=== PATIENT | female | born 1980 | race Caucasian/White ===

== ENCOUNTER 2018-06-02 01:05 | Emergency (ER) | payer OTHER ==
[~2018-06-02] VITALS: Ht 172.7 cm; Wt 72.6 kg
[2018-06-02 01:05] VITALS: BP 106/86
--- NOTE | 2018-06-02 01:05 | NUR ---
38/F BIBA FOR ETOH FROM BAR. N/V ON ARRIVAL, AIRWAY INTACT. GCS 9, NONVERBAL WITH PURPOSEFUL MOVEMENTS AND EYE OPENING TO VOICE. UNKNOWN PMH
--- NOTE | 2018-06-02 01:05 | NUR ---
PT DEION BLS TO ER BED 07
[2018-06-02] MEDS ORDERED: ONDANSETRON 4 MG/2 ML VIAL IVP ONE (01:10)
[2018-06-02] MEDS ORDERED: NACL 0.9% 2,000 ML IV ONE (01:10)
[2018-06-02] MEDS ORDERED: ONDANSETRON 4 MG/2 ML VIAL ONE (01:19)
--- NOTE | 2018-06-02 02:00 | NUR ---
PT STARTED WAKING UP. AOX4, GCS 15
--- NOTE | 2018-06-02 03:04 | NUR ---
Patient discharged with v/s stable. Written and verbal after care instructions given and explained. Patient alert, oriented and verbalized understanding of instructions. Ambulatory with steady gait. All questions addressed prior to discharge. ID band removed. Patient advised to follow up with PMD. Rx of ZOFRAN ODT given. Patient educated on indication of medication including possible reaction and side effects. Opportunity to ask questions provided and answered. IV removed, catheter intact and site benign. Applied folded 4x4 gauze and tape to stop bleeding.Patient presented to facility under the influence of Alcohol. Patient is currently ambulatory with steady gait, able to walk unassisted. Positive gag reflex. Alert and oriented. Is not driving self for discharge out of facility.
[2018-06-02 03:16] VITALS: BP 105/64
== END 2018-06-02 03:04 | disposition home or self-care (01) ==
LOC: MED 01:05
DX: F10.129 Alcohol abuse with intoxication, unspecified (principal); R11.2 Nausea with vomiting, unspecified; Z88.6 Allergy status to analgesic agent
CPT/HCPCS: 96361; 96374; 99285; J2405; J7030; 99284